=== PATIENT | male | born 1985 | race Two or more races ===

== ENCOUNTER 2017-06-12 09:39 | Emergency (ER) | payer OTHER ==
[2017-06-12 10:12] VITALS: BP 139/81; PULSE 80; RESP 16; TEMP 98.6; O2SAT 98
[2017-06-12] MEDS ORDERED: TETANUS/DIPHTHERIA TOXOID ADULT 0.5 ML VIAL IM ONE (11:30)
--- NOTE | 2017-06-12 11:34 | PD ---
HPI Chief Complaint: Laceration/Skin Injury Time Seen by Provider: 11:16 Travel History International Travel<30 days: No Contact w/Intl Traveler<30days: No Traveled to known affect area: No History of Present Illness HPI 31-year-old male presents to the emergency room for evaluation of head injury that occurred just prior to arrival. 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 Patient states he fell backwards off scaffolding about 8 feet while at work. He hit his head on concrete but denies loss of consciousness. Reports moderate pain around the wound on his head but denies significant headache. He is not on blood thinners. He also reports medial right knee pain that is worse when he walks. Patient adamantly denies any neck pain, back pain, hip pain, chest pain, shortness of breath, abdominal pain, or any other pain at this time. He has not taken anything for symptoms. No chronic medical conditions or daily medications. Unknown last tetanus. [facility] Social History Tobacco Use: No Allergies-Medications (Allergen,Severity, Reaction): Coded Allergies: No Known Allergies (Unverified , 06/12/17) Review of Systems Except as stated in HPI: all other systems reviewed are Neg Physical Exam Narrative GENERAL: Well-nourished, well-developed male in no acute distress. Afebrile. Ambulatory. SKIN: Focused skin assessment warm/dry. There is a 4 cm gaping laceration to the left posterior scalp. Nonbleeding. HEAD: Normocephalic. EYES: No scleral icterus. No injection or drainage. NECK: Supple, trachea midline. No JVD or lymphadenopathy. CARDIOVASCULAR: Regular rate and rhythm without murmurs, gallops, or rubs. RESPIRATORY: Breath sounds equal bilaterally. No accessory muscle use. MUSCULOSKELETAL: No cyanosis, or edema. Mild tenderness to palpation of the right medial knee. Full range of motion. NEUROLOGICAL: Awake and alert. Cranial nerves II through XII intact. Motor and sensory grossly within normal limits. Five out of 5 muscle strength in all muscle groups. Normal speech. Data Data Last Documented VS Vital Signs Date Time Temp Pulse Resp B/P (MAP) Pulse Ox O2 Delivery O2 Flow Rate FiO2 06/12/17 10:12 98.6 80 16 139/81 (100) [address] Brain W/O Iv Contrast(Rout) (06/12/17 ) Knee, Ltd (1 Or 2vws) (06/12/17 ) Ct Cerv Spine W/O Contrast (06/12/17 ) Tetanus/Diphtheria Tox Adult (Tetanus/Di (06/12/17 11:30) MDM Medical Decision Making Medical Screen Exam Complete: Yes Emergency Medical Condition: Yes Medical Record Reviewed: Yes Differential Diagnosis Head laceration, wound, neck pain, fracture, contusion Narrative Course 31-year-old female presents to the emergency room for evaluation of laceration that occurred just prior to arrival. Patient states he fell backwards off of scaffolding about 8 feet and struck the back of his head against a piece of concrete. No loss of consciousness, nausea, vomiting, or severe headache. He is not on blood thinners. Tetanus was updated and wound was thoroughly cleansed. CT of head and neck are negative. X-ray of the knee is normal. Patient adamantly denies any other pain or injury. He is well-appearing in the emergency room. No focal neurological deficits. The 4 cm laceration to his scalp was repaired, see procedure note for details. Patient discharged with wound care instructions and told to follow-up with the PCP return for worsening symptoms. He understands and agrees to plan. Procedures Procedure Narrative LACERATION LOCATION: Left posterior scalp LENGTH: 4 cm NUMBER OF STITCHES/JUANITA: 7 juanita REPAIR: The area of the laceration was prepped with Betadine and sterilely draped. The laceration was infiltrated with 1% lidocaine. The wound was copiously irrigated and explored without evidence of foreign body, tendon injury or neurovascular injury. The wound was closed using staple gun. This was a single layer repair. A sterile dressing was applied. The patient was advised to keep the dressing clean and dry. Patient tolerated the procedure well. Diagnosis Primary Impression: Laceration of head Qualified Codes: S01.01XA - Laceration without foreign body of scalp, initial encounter Additional Impression: Knee sprain Qualified Codes: S83.91XA - Sprain of unspecified site of right knee, initial encounter Referrals: Primary Care Physician Additional Instructions: Rest and drink fluids. Keep wound clean and dry. Apply triple antibiotic ointment daily. Return in 7 days to have juanita removed. Follow-up with a primary care physician. Return to the emergency room for worsening symptoms. Disposition: 01 DISCHARGE HOME Condition: Stable Gill,Luzmaria PA Jun 12, 2017 11:34
--- NOTE | 2017-06-12 12:03 | RADRPT ---
EXAM DATE/TIME: 06/12/2017 11:48 [facility] COMPARISON: No previous studies available for comparison. INDICATIONS : Trauma, headache after hit in head by falling heavy object today. RADIATION DOSE: 56.35 CTDIvol (mGy) MEDICAL HISTORY : None SURGICAL HISTORY : None. ENCOUNTER: Initial ACUITY: 1 day PAIN SCALE: 8/10 LOCATION: Bilateral head TECHNIQUE: Multiple contiguous axial images were obtained of the head. Using automated exposure control and adj ustment of the mA and/or kV according to patient size, radiation dose was kept as low as reasonably a chievable to obtain optimal diagnostic quality images. DICOM format image data is available electro nically for review and comparison. FINDINGS: CEREBRUM: The ventricles are normal for age. No evidence of midline shift, mass lesion, hemorrhage or acute in farction. No extra-axial fluid collections are seen. POSTERIOR FOSSA: The cerebellum and brainstem are intact. The 4th ventricle is midline. The cerebellopontine angle i s unremarkable. EXTRACRANIAL: The visualized portion of the orbits is intact. SKULL: The calvaria is intact. No evidence of skull fracture. CONCLUSION: Negative trauma study. Moises Daley MD on June 12, 2017 at 11:59 Board Certified Radiologist. This report was verified electronically.
--- NOTE | 2017-06-12 12:06 | RADRPT ---
EXAM DATE/TIME: 06/12/2017 11:47 [facility] COMPARISON: No previous studies available for comparison. INDICATIONS : Fall. Right medial knee pain. MEDICAL HISTORY : None. SURGICAL HISTORY : None. ENCOUNTER: Initial ACUITY: 1 day PAIN SCORE: 7/10 LOCATION: Right knee FINDINGS: Two view examination of the right knee demonstrates no evidence of fracture or dislocation. Bony min eralization is normal. The suprapatellar soft tissues have a normal configuration. CONCLUSION: No acute fracture. Shilo Schultz MD on June 12, 2017 at 12:04 Board Certified Radiologist. This report was verified electronically.
--- NOTE | 2017-06-12 12:12 | RADRPT ---
EXAM DATE/TIME: 06/12/2017 11:48 [facility] COMPARISON: No previous studies available for comparison. INDICATIONS : Trauma, hit in head by falling heavy object today. RADIATION DOSE: 22.35 CTDIvol (mGy) MEDICAL HISTORY : None SURGICAL HISTORY : None. ENCOUNTER: Initial ACUITY: 1 day PAIN SCALE: 8/10 LOCATION: Bilateral neck TECHNIQUE: Volumetric scanning of the cervical spine was performed. Multiplanar reconstructions in the sagittal, coronal and oblique axial planes were performed. Using automated exposure control and adjustment o f the mA and/or kV according to patient size, radiation dose was kept as low as reasonably achievable to obtain optimal diagnostic quality images. DICOM format image data is available electronically f or review and comparison. FINDINGS: VERTEBRAE: Normal vertebral body height. ALIGNMENT: No evidence of subluxation. C2-C3: The bony spinal canal is normal in size. No evidence of disc bulge or herniation. The neural forami na are bilaterally patent. C3-C4: The bony spinal canal is normal in size. No evidence of disc bulge or herniation. The neural forami na are bilaterally patent. C4-C5: The bony spinal canal is normal in size. No evidence of disc bulge or herniation. The neural forami na are bilaterally patent. C5-C6: The bony spinal canal is normal in size. No evidence of disc bulge or herniation. The neural forami na are bilaterally patent. C6-C7: The bony spinal canal is normal in size. No evidence of disc bulge or herniation. The neural forami na are bilaterally patent. C7-T1: The bony spinal canal is normal in size. No evidence of disc bulge or herniation. The neural forami na are bilaterally patent. CONCLUSION: No fracture or subluxation. Shilo Schultz MD on June 12, 2017 at 12:10 Board Certified Radiologist. This report was verified electronically.
== END 2017-06-12 12:46 | disposition home or self-care (01) ==
LOC: NEPK 09:39
DX: S01.01XA Laceration without foreign body of scalp, initial encounter (principal); S83.91XA Sprain of unspecified site of right knee, initial encounter; Z23 Encounter for immunization; W12.XXXA Fall on and from scaffolding, initial encounter; Y99.0 Civilian activity done for income or pay
CPT/HCPCS: 12002; 70450; 72125; 73560; 90471; 90714